=== PATIENT | female | born 1990 | race Caucasian/White ===

== ENCOUNTER → 2024-06-24 | Outpatient (CLI) | payer MEDICAID, SELFPAY ==
--- NOTE | 2024-06-24 09:45 | XR_ITS ---
Examination: MRI brain without intravenous contrast. Date and time of exam: June 24, 2024 1025 hours INDICATIONS: Seizures beginning 2004 with temporal headaches one month Technique: Multiple axial and sagittal images of the brain obtained. Siemens high-resolution 1.5 Wendy short bore scanners utilized. Sagittal sections, T1-weighted, TR 500, TE 14, are performed. Axial sections proton-density and T2-weighted have been obtained. Inversion recovery axial images, TR 9, 260, TE 111, TI 2500. Diffusion weighted images, axial sections, TR 4800, TE 128, B value 1000 Axial sections, ADC map, TR 4800, TE 128 Findings: Enlargement of the sella turcica is not present. The optic chiasm and infundibular are not remarkable. Prepontine and interpeduncular cisterns are not enlarged. There is no localized enlargement of the medulla or mina. Fourth ventricle and cerebellar tonsils appear normal in position. No subacute area of hemorrhage density is seen. Mass in the cerebellopontine angle region is not evident. Globes symmetrical. Orbital musculature including medial lateral rectus muscles do not exhibit abnormality. Diffusion-weighted images demonstrate no focus of restricted diffusion. Increased white matter signal not seen Mass effect upon the ventricular system is not identified. Significant maxillary sinusitis Impression: Negative for acute hemorrhage mass effect or midline shift No acute infarct No MR findings diagnostic for demyelinating disease
== END | disposition home or self-care (01) ==
PROVIDERS: PCP Physician Assistant; Referring Provider Physician Assistant; Visit Provider Physician Assistant
DX: G40.909 Epilepsy, unspecified, not intractable, without status epilepticus (principal)
CPT/HCPCS: 70551

== ENCOUNTER → 2024-11-20 | Outpatient (CLI) | payer MEDICAID, SELFPAY ==
[2024-11-19 13:47] LABS: HCG Qualitative,Urine Negative
--- NOTE | 2024-11-20 13:45 | XR_ITS ---
Examination: MRI of brain without intravenous contrast. MRI brain with intravenous contrast. Date and time of exam:November 20, 2024 1423 hours Comparison June 24, 2024 INDICATIONS: Ataxia, facial weakness, strokelike symptoms beginning October 24, 2024 difficulty speaking left leg weakness Technique: Multiple axial and sagittal images of the brain to been obtained. Siemens high-resolution 1.52 Wendy short bore scanner utilized. Sagittal sections, T1 weighted images, TR 500, TE 14, are performed. Axial sections proton-density and T2-weighted images have been obtained. Inversion recovery axial images, TR 9260, TE 111, TR 2500. Diffusion weighted images, axial sections, TR 4800, TE 128, B value 1000. Axial sections, ADC map, TR 4800, TE 128. Axial and coronal images were also obtained post 20 cc gadolinium administered intravenously. Findings:: Enlargement of the sella turcica is not present. The optic chiasm and infundibular stalk are not remarkable. There is no localized enlargement of the medulla or mina. Fourth ventricle and cerebellar tonsils appear normal in position. No subacute area of hemorrhage density is seen. Fourth ventricle is midline. Mass in the cerebellopontine angle region is not evident. 7th and 8th nerve complexes exhibit symmetry Globes are symmetrical Orbital musculature including medial lateral rectus muscles do not exhibit abnormality Increased white matter signal is not seen Effacement of the cortical sulcal markings is not identified. Mass effect upon the ventricular system is not identified. Diffusion-weighted images demonstrate no focus of restricted diffusion Contrast images demonstrate no abnormal enhancement Mild bilateral mastoiditis Impression: Negative for acute hemorrhage mass effect or midline shift No acute infarct No MR findings diagnostic for demyelinating disease No abnormal enhancing lesions
== END | disposition home or self-care (01) ==
LOC: SMRI 13:10
PROVIDERS: PCP Physician Assistant Medical; Referring Provider Physician Assistant Medical; Visit Provider Physician Assistant Medical
DX: R29.810 Facial weakness (principal); R26.9 Unspecified abnormalities of gait and mobility; R53.1 Weakness; R29.898 Other symptoms and signs involving the musculoskeletal system; Z32.00 Encounter for pregnancy test, result unknown
CPT/HCPCS: 70553; 81025; A9579

== ENCOUNTER 2024-11-26 09:00 | Outpatient (RCR) | payer MEDICAID, SELFPAY ==
--- NOTE | 2024-11-19 13:47 | PT.OIERPT ---
PT OP Initial Eval Patient Information Outpatient Physical Therapy Treatment Date: 11/26/24 Visit Reasons: Left leg weakness Medical Diagnosis: R53.1; R26.9 Treatment Dx #1: Abnormal Gait Treatment Dx #2: Left Side Weakness Smoking Status Smoking Status: Current every day smoker (yes) Cessation Counseling Provided: NOE was advised that quitting smoking is the single most important factor to protect the health of themselves and their family. Discussed the benefits of quitting smoking with patient. Encouraged patient to quit smoking and provided Cessation assistance materials and resources. Tobacco Use: Vapor Cigarette Years smoked: 10 Are you interested in quitting?: No Would you like additional Smoking Cessation Counseling?: No Initial Assessment Subjective: Pt is a 34 y/o female reports of left side weakness and abnormal gait after her TIA 10/24/24. Pt is pending brain MRI tomorrow. Pt mentioned her past CT scan negative for CVA. Pt has limitation with walking, standing, chores, self care, balance, uneven surfaces, and performing recreational activities. Objective: Left UE AROM: all motions are WFL Left UE MMTs: grossly 3+/5 Left LE AROM: all motions are 50 % towards end range Left LE MMTs: grossly 3-/5 Assessment: Pt demonstrate left side weakness LE>UE s/p TIA leading to difficulty with ADLs. Pt will benefit from physical therapy to increase ROM, strength, and work on gait. [employer] Goals 1) Increase left UE MMTs grossly to 4/5 in 8 wks to be able to perform lifting activities 2) Increase left LE MMTs grossly to 4-/5 in 8 wks to be able to walk without AD 3) Improve balance in 8 wks to be able to perform recreational activities 4) Indep with HEP Treatment Plan 1) Manual Therapy 2) Therapeutic Activities 3) Therapeutic Exercises 4) Balance Training 5) Gait Training Frequency and Duration: 2 x wk for 8 wks Certification Dates: 11/19/24 to 02/18/25 Procedure Charges OP PT Eval Mod Complex 30 minutes: Yes
--- NOTE | 2024-11-26 09:27 | PT.ODAYNRPT ---
PT Outpatient Daily Note OP Daily Note Outpatient Physical Therapy Treatment Date: 11/26/24 Visit Reasons: Left leg weakness Subjective: Pt's has good and bad days. Pt completed brain MRI recently. Objective: Please see flow chart for list of ther ex performed Assessment: review current brain MRI results which is negative for infarct. Pt's gait is better with use of bilateral hand on the PB with decrease left foot drag vs to current gait where she's using one forearm cane on the left arm. Pt recommended to use bilateral, however, right side is broken and is waiting for a new one. Plan: Continue with PT Length of Time (minutes) of Treatment: 30 Minutes Procedure Charges Therapeutic Exercise 30 minutes: Yes
== END 2024-11-27 23:59 | disposition home or self-care (01) ==
LOC: CPTX 09:00
PROVIDERS: PCP Physician Assistant Medical; Referring Provider Physician Assistant Medical; Visit Provider Physician Assistant Medical
DX: R53.1 Weakness (principal); R26.89 Other abnormalities of gait and mobility; R26.2 Difficulty in walking, not elsewhere classified; Z86.73 Personal history of transient ischemic attack (TIA), and cerebral infarction without residual deficits
CPT/HCPCS: 97110; 97162

== ENCOUNTER 2024-12-24 09:30 | Outpatient (RCR) | payer MEDICAID, SELFPAY ==
--- NOTE | 2024-12-03 10:07 | PT.ODAYNRPT ---
PT Outpatient Daily Note OP Daily Note Outpatient Physical Therapy Treatment Date: 12/03/24 Visit Reasons: Left leg weakness Subjective: Pt was sore and fatigue post last session. Pt mentioned her new cane is coming in. Pt seen neurologist and review brain MRI. According to patient Pt will follow up with PCP for further diagnostic. Objective: Please see flow chart for list of ther ex performed Assessment: added more exercises with good tolerance. Pt only tolerate 3 mins of sci fit due to performing exercise at the end of session. Plan: Continue with PT Length of Time (minutes) of Treatment: 30 Minutes Procedure Charges Therapeutic Exercise 30 minutes: Yes
--- NOTE | 2024-12-10 09:52 | PT.ODAYNRPT ---
PT Outpatient Daily Note OP Daily Note Outpatient Physical Therapy Treatment Date: 12/10/24 Visit Reasons: Left leg weakness Subjective: Pt's leg feel stronger. Pt mentioned walking seems to be better the last week. Objective: Please see flow chart for list of ther ex performed Assessment: practice GT in PB using right UE on PB. Cue to have right hand go in synch with left LE stride to practice step through pattern. Pt will still need practice with gait transition in PB prior to using a cane on the right UE. Plan: Continue with PT Length of Time (minutes) of Treatment: 30 Minutes Procedure Charges Gait Training 15 minutes: Yes Therapeutic Exercise 15 minutes: Yes
--- NOTE | 2024-12-24 12:03 | PT.ODAYNRPT ---
PT Outpatient Daily Note OP Daily Note Outpatient Physical Therapy Treatment Date: 12/24/24 Visit Reasons: Left leg weakness Subjective: Pt's left leg still buckle. Pt mentioned she's walking better with more LE strength. Objective: Please see flow chart for list of ther ex performed Assessment: improving with BLE strength; today's gait sequence was more normal, however, notice intermittent left knee buckling in stance. Plan: Continue with PT Length of Time (minutes) of Treatment: 30 Minutes Procedure Charges Therapeutic Exercise 30 minutes: Yes
== END 2024-12-28 23:59 | disposition home or self-care (01) ==
LOC: CPTX 09:30
PROVIDERS: PCP Physician Assistant Medical; Referring Provider Physician Assistant Medical; Visit Provider Physician Assistant Medical
DX: R53.1 Weakness (principal); R26.2 Difficulty in walking, not elsewhere classified; R26.89 Other abnormalities of gait and mobility; Z86.73 Personal history of transient ischemic attack (TIA), and cerebral infarction without residual deficits
CPT/HCPCS: 97110; 97116